=== PATIENT | female | born 1960 | race Caucasian/White ===

== ENCOUNTER 2016-11-17 14:22 | Emergency (ER) | payer MEDICARE ==
[2016-11-17 14:29] VITALS: BP 148/75
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
== END 2016-11-17 15:04 | disposition home or self-care (01) ==
LOC: ER 14:22
DX: Z76.0 Encounter for issue of repeat prescription (principal); M54.6 Pain in thoracic spine; G89.29 Other chronic pain
CPT/HCPCS: 99281

== ENCOUNTER → 2020-05-17 | Outpatient (CLI) | payer MEDICARE ==
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
== END ==
LOC: RAD 10:47
PROVIDERS: ATTEND Podiatrist Foot & Ankle Surgery
DX: M79.672 Pain in left foot (principal); Z18.9 Retained foreign body fragments, unspecified material